=== PATIENT | female | born 1975 | race Caucasian/White ===

== ENCOUNTER 2020-01-27 12:39 | Inpatient (IN) ==
[2020-01-27] MEDS ORDERED: ONDANSETRON 4 MG/2 ML VIAL IV STA ×2 (13:09→14:45)
[2020-01-27 13:28] LABS: Basophils # 0.1 10*3/uL (0.0-0.2); Eosinophils # 0.1 10*3/uL (0.0-0.87); Eosinophils % 0.9 % (0.00-10.9); Hematocrit 23.7 VOL% (35.7-47.0); Hemoglobin 7.6 GM/DL (12.0-16.0); Immature Granulocytes % 0.8 %; Immature Granulocytes Absolute 0.06 #; Lymphocytes # 1.7 10*3/uL (1.4-4.0); Lymphocytes % 20.6 % (21.3-54.2); Mean Corpuscular HGB Conc 32.1 GM/DL (32-36); Mean Corpuscular Volume 119.7 FL (87-102); Mean Platelet Volume 12.2 FL (9.6-12.0); Monocytes % 12.8 % (1.7-12.7); Neutrophils % 63.9 % (38.7-73.9); Platelet Count 46 T/CUMM (130-400); Red Blood Count 1.98 MC/CUMM (3.8-5.5); Red Cell Distribution Width 22.5 % (9.3-17.3)
[2020-01-27 13:40] LABS: INR 2.3; PT Patient Result 23.3 SECS (9.8-11.9); Partial Thromboplastin Time 39.3 SECS (23.9-33.8)
[2020-01-27 13:50] LABS: Eosinophils 1 % (0-10); Lymphocytes 14 % (20-55); Segmented Neutrophils 74 % (50-85); Total Cells Counted 100
[2020-01-27 13:51] LABS: Platelet Estimate Decreased
[2020-01-27 13:52] LABS: Albumin 2.2 G/DL (3.4-5.0); Bilirubin,Total 3.1 MG/DL (0.2-1.0); Calcium 6.4 MG/DL (8.5-10.1); Hypochromasia Slight; Macrocytosis 1+; Osmolality,Calculated 266.2 MOS/KG (273-304); Polychromasia Few; Target Cells Few; Total Protein 6.3 G/DL (6.4-8.3)
[2020-01-27] MEDS ORDERED: POTASSIUM CHLORIDE 20 MEQ TABLET PO STA (14:02)
[2020-01-27] MEDS ORDERED: DEXTROSE 50% 25 GM/50 ML VIAL IV PRN (15:23)
[2020-01-27] MEDS ORDERED: GLUCAGON 1 MG VIAL IM PRN (15:23)
[2020-01-27] MEDS: SODIUM CHLOR 0.45% KCL 20 MEQ 20 MEQ/1,000 ML BAG IV SCH (15:28)
[2020-01-27] MEDS: NICOTINE 14 MG/24 HR PATCH TRANSDERM SCH (18:39)
[2020-01-28 06:18] LABS: Basophils # 0.1 10*3/uL (0.0-0.2); Basophils % 1.6 % (0.0-0.8); Eosinophils # 0.1 10*3/uL (0.0-0.87); Eosinophils % 1.3 % (0.00-10.9); Hematocrit 23.6 VOL% (35.7-47.0); Hemoglobin 7.6 GM/DL (12.0-16.0); Immature Granulocytes % 0.5 %; Immature Granulocytes Absolute 0.04 #; Lymphocytes % 13.6 % (21.3-54.2); Mean Corpuscular HGB Conc 32.2 GM/DL (32-36); Mean Corpuscular Volume 118.6 FL (87-102); Mean Platelet Volume 11.8 FL (9.6-12.0); Monocytes % 15.6 % (1.7-12.7); Neutrophils % 67.4 % (38.7-73.9); Platelet Count 49 T/CUMM (130-400); Red Blood Count 1.99 MC/CUMM (3.8-5.5); White Blood Count 7.5 T/CUMM (4-12)
[2020-01-28 06:33] LABS: INR 2.3; PT Patient Result 23.5 SECS (9.8-11.9); Partial Thromboplastin Time 37.9 SECS (23.9-33.8)
[2020-01-28 06:41] LABS: Band Neutrophils 1 % (0-10); Eosinophils 2 % (0-10); Hypochromasia 1+; Lymphocytes 7 % (20-55); Platelet Estimate Decreased; Segmented Neutrophils 80 % (50-85); Total Cells Counted 100
[2020-01-28 06:44] LABS: Calcium 6.6 MG/DL (8.5-10.1); Osmolality,Calculated 271.8 MOS/KG (273-304)
[2020-01-28] MEDS: ONDANSETRON 4 MG/2 ML VIAL IV PRN (06:52)
[2020-01-28] MEDS: SODIUM CHLOR 0.45% KCL 20 MEQ 20 MEQ/1,000 ML BAG IV SCH ×2 (07:58→17:35)
[2020-01-28] MEDS ORDERED: POTASSIUM CHLORIDE 20 MEQ TABLET PO ONE (08:29)
[2020-01-28] MEDS: MULTIVITAMIN (BEROCCA) TABLET PO SCH (09:40)
[2020-01-28] MEDS: THIAMINE 100 MG TABLET PO SCH (09:40)
[2020-01-28] MEDS: traMADol 50 MG TABLET PO PRN ×2 (11:20→17:34)
[2020-01-28] MEDS: PHYTONADIONE 5 MG/5 ML ORAL.SYR PO SCH (11:39)
[2020-01-28] MEDS ORDERED: TUBERCULIN SKIN TEST 0.1 ML SYRINGE INTRADERM ONE (13:18)
[2020-01-28] MEDS: NICOTINE 14 MG/24 HR PATCH TRANSDERM SCH (18:29)
[2020-01-29] MEDS: traMADol 50 MG TABLET PO PRN ×3 (00:41→17:21)
[2020-01-29] MEDS: SODIUM CHLOR 0.45% KCL 20 MEQ 20 MEQ/1,000 ML BAG IV SCH ×2 (04:24→16:25)
[2020-01-29 05:47] LABS: Basophils # 0.1 10*3/uL (0.0-0.2); Eosinophils # 0.1 10*3/uL (0.0-0.87); Eosinophils % 1.6 % (0.00-10.9); Hematocrit 21.9 VOL% (35.7-47.0); Hemoglobin 7.2 GM/DL (12.0-16.0); Immature Granulocytes % 0.4 %; Immature Granulocytes Absolute 0.03 #; Lymphocytes # 2.5 10*3/uL (1.4-4.0); Lymphocytes % 36.9 % (21.3-54.2); Mean Corpuscular HGB Conc 32.9 GM/DL (32-36); Mean Corpuscular Volume 117.7 FL (87-102); Mean Platelet Volume 11.2 FL (9.6-12.0); Monocytes % 12.9 % (1.7-12.7); Neutrophils % 47.2 % (38.7-73.9); Platelet Count 55 T/CUMM (130-400); Red Blood Count 1.86 MC/CUMM (3.8-5.5); Red Cell Distribution Width 22.7 % (9.3-17.3); White Blood Count 6.8 T/CUMM (4-12)
[2020-01-29 05:53] LABS: PT Patient Result 20.5 SECS (9.8-11.9)
[2020-01-29 06:10] LABS: Calcium 6.6 MG/DL (8.5-10.1)
[2020-01-29 06:16] LABS: Eosinophils 1 % (0-10); Lymphocytes 20 % (20-55); Platelet Estimate Decreased; Segmented Neutrophils 68 % (50-85); Total Cells Counted 100
[2020-01-29 06:17] LABS: Hypochromasia 1+
[2020-01-29] MEDS: THIAMINE 100 MG TABLET PO SCH (09:06)
[2020-01-29] MEDS: MULTIVITAMIN (BEROCCA) TABLET PO SCH (09:06)
[2020-01-29] MEDS: PHYTONADIONE 5 MG/5 ML ORAL.SYR PO SCH (09:55)
[2020-01-29] MEDS: NICOTINE 14 MG/24 HR PATCH TRANSDERM SCH (18:39)
[2020-01-30] MEDS: traMADol 50 MG TABLET PO PRN ×4 (00:03→23:20)
[2020-01-30 05:58] LABS: Basophils # 0.1 10*3/uL (0.0-0.2); Basophils % 1.2 % (0.0-0.8); Eosinophils # 0.2 10*3/uL (0.0-0.87); Eosinophils % 2.2 % (0.00-10.9); Hematocrit 22.5 VOL% (35.7-47.0); Hemoglobin 7.1 GM/DL (12.0-16.0); Immature Granulocytes % 0.4 %; Immature Granulocytes Absolute 0.03 #; Lymphocytes # 2.9 10*3/uL (1.4-4.0); Lymphocytes % 39.8 % (21.3-54.2); Mean Corpuscular HGB Conc 31.6 GM/DL (32-36); Mean Corpuscular Volume 121.6 FL (87-102); Mean Platelet Volume 11.2 FL (9.6-12.0); Monocytes % 12.1 % (1.7-12.7); Neutrophils % 44.3 % (38.7-73.9); Red Blood Count 1.85 MC/CUMM (3.8-5.5); Red Cell Distribution Width 22.5 % (9.3-17.3); White Blood Count 7.2 T/CUMM (4-12)
[2020-01-30 06:00] LABS: Platelet Count 58 T/CUMM (130-400)
[2020-01-30 06:04] LABS: INR 1.7; PT Patient Result 17.8 SECS (9.8-11.9)
[2020-01-30 06:40] LABS: Hypochromasia 1+; Lymphocytes 31 % (20-55); Macrocytosis Slight; Platelet Estimate Decreased; Segmented Neutrophils 59 % (50-85); Target Cells Few; Total Cells Counted 100
[2020-01-30] MEDS: NICOTINE 14 MG/24 HR PATCH TRANSDERM SCH (11:00)
[2020-01-30] MEDS: PHYTONADIONE 5 MG/5 ML ORAL.SYR PO SCH (11:00)
[2020-01-30] MEDS: MULTIVITAMIN (BEROCCA) TABLET PO SCH (11:00)
[2020-01-30] MEDS: THIAMINE 100 MG TABLET PO SCH (11:00)
[2020-01-30] MEDS ORDERED: TISSUE ADHESIVE 1 EACH APPLICATOR TOP ONE (13:06)
[2020-01-30 14:07] LABS: Neutrophils,Peritoneal Fluid 33 %
[2020-01-30 14:08] LABS: RBC,Peritoneal Fluid 10 T/CUMM
[2020-01-30] MEDS: SODIUM CHLOR 0.45% KCL 20 MEQ 20 MEQ/1,000 ML BAG IV SCH (17:41)
[2020-01-31 06:31] LABS: INR 1.6; PT Patient Result 16.6 SECS (9.8-11.9)
[2020-01-31] MEDS: traMADol 50 MG TABLET PO PRN ×3 (07:45→20:59)
[2020-01-31] MEDS: THIAMINE 100 MG TABLET PO SCH (09:24)
[2020-01-31] MEDS: NICOTINE 14 MG/24 HR PATCH TRANSDERM SCH (09:24)
[2020-01-31] MEDS: MULTIVITAMIN (BEROCCA) TABLET PO SCH (09:24)
[2020-01-31] MEDS ORDERED: FUROSEMIDE 20 MG/2 ML VIAL IV ONE (16:49)
[2020-01-31] MEDS: ACETAMINOPHEN 325 MG TABLET PO PRN (17:24)
[2020-01-31] MEDS: SPIRONOLACTONE 25 MG TABLET PO SCH (17:24)
[2020-02-01] MEDS: ACETAMINOPHEN 325 MG TABLET PO PRN ×3 (03:56→18:35)
[2020-02-01] MEDS: NICOTINE 14 MG/24 HR PATCH TRANSDERM SCH (09:16)
[2020-02-01] MEDS: THIAMINE 100 MG TABLET PO SCH (09:16)
[2020-02-01] MEDS: SPIRONOLACTONE 25 MG TABLET PO SCH (09:16)
[2020-02-01] MEDS: MULTIVITAMIN (BEROCCA) TABLET PO SCH (09:17)
[2020-02-01] MEDS: traMADol 50 MG TABLET PO PRN ×3 (09:21→15:21)
[2020-02-01] MEDS: ONDANSETRON 4 MG/2 ML VIAL IV PRN (11:02)
[2020-02-02] MEDS: MULTIVITAMIN (BEROCCA) TABLET PO SCH (08:22)
[2020-02-02] MEDS: THIAMINE 100 MG TABLET PO SCH (08:23)
[2020-02-02] MEDS: NICOTINE 14 MG/24 HR PATCH TRANSDERM SCH (08:23)
[2020-02-02] MEDS: SPIRONOLACTONE 25 MG TABLET PO SCH (09:05)
[2020-02-02] MEDS: traMADol 50 MG TABLET PO PRN ×3 (12:05→22:27)
[2020-02-02] MEDS: ACETAMINOPHEN 325 MG TABLET PO PRN (14:40)
[2020-02-03] MEDS: traMADol 50 MG TABLET PO PRN ×3 (05:58→16:50)
[2020-02-03 06:22] LABS: Basophils # 0.1 10*3/uL (0.0-0.2); Eosinophils # 0.2 10*3/uL (0.0-0.87); Hematocrit 20.4 VOL% (35.7-47.0); Hemoglobin 6.8 GM/DL (12.0-16.0); Immature Granulocytes % 1.1 %; Immature Granulocytes Absolute 0.11 #; Lymphocytes # 2.5 10*3/uL (1.4-4.0); Lymphocytes % 24.3 % (21.3-54.2); Mean Corpuscular HGB Conc 33.3 GM/DL (32-36); Mean Corpuscular Volume 119.3 FL (87-102); Mean Platelet Volume 11.6 FL (9.6-12.0); Monocytes % 11.5 % (1.7-12.7); Neutrophils % 60.1 % (38.7-73.9); Platelet Count 133 T/CUMM (130-400); Red Blood Count 1.71 MC/CUMM (3.8-5.5); Red Cell Distribution Width 20.8 % (9.3-17.3); White Blood Count 10.2 T/CUMM (4-12)
[2020-02-03 06:42] LABS: Albumin 1.9 G/DL (3.4-5.0); Bilirubin,Total 7.3 MG/DL (0.2-1.0); Calcium 7.7 MG/DL (8.5-10.1); Osmolality,Calculated 252.2 MOS/KG (273-304); Total Protein 5.7 G/DL (6.4-8.3)
[2020-02-03 07:20] LABS: Band Neutrophils 1 % (0-10); Lymphocytes 20 % (20-55); Total Cells Counted 100
[2020-02-03 07:21] LABS: Anisocytosis 2+; Eosinophils 2 % (0-10); Hypochromasia 2+; Macrocytosis 2+; Metamyelocytes 3 %; Myelocytes 1 %; Ovalocytes 1+; Platelet Estimate Decreased; Segmented Neutrophils 62 % (50-85); Target Cells 2+
[2020-02-03] MEDS ORDERED: SODIUM CHLORIDE 0.9% 1,000 ML IV PRN (07:49)
[2020-02-03 08:27] LABS: Ferritin 427.1 ng/ml (8-252)
[2020-02-03 08:54] LABS: Folate 20.1 NG/ML (5.4-24.0); Vitamin B12 > 2000 PG/ML (211-911)
[2020-02-03] MEDS: SPIRONOLACTONE 25 MG TABLET PO SCH (08:55)
[2020-02-03] MEDS: THIAMINE 100 MG TABLET PO SCH (08:55)
[2020-02-03] MEDS: MULTIVITAMIN (BEROCCA) TABLET PO SCH (08:55)
[2020-02-03] MEDS: NICOTINE 14 MG/24 HR PATCH TRANSDERM SCH (08:57)
[2020-02-03] MEDS ORDERED: FUROSEMIDE 40 MG/4 ML VIAL IV ONE (13:28)
[2020-02-03 19:13] LABS: Hematocrit 30.9 VOL% (35.7-47.0); Hemoglobin 10.3 GM/DL (12.0-16.0)
[2020-02-03] MEDS: LACTULOSE 20 GM/30 ML UDCUP PO SCH (21:06)
[2020-02-03] MEDS: ACETAMINOPHEN 325 MG TABLET PO PRN (21:06)
[2020-02-04 06:02] LABS: Basophils # 0.1 10*3/uL (0.0-0.2); Basophils % 1.1 % (0.0-0.8); Eosinophils # 0.1 10*3/uL (0.0-0.87); Eosinophils % 1.2 % (0.00-10.9); Hemoglobin 10.2 GM/DL (12.0-16.0); Immature Granulocytes % 0.8 %; Immature Granulocytes Absolute 0.07 #; Lymphocytes # 2.4 10*3/uL (1.4-4.0); Mean Corpuscular Volume 105.3 FL (87-102); Monocytes % 13.6 % (1.7-12.7); Neutrophils % 57.3 % (38.7-73.9); Platelet Count 103 T/CUMM (130-400); Red Blood Count 2.85 MC/CUMM (3.8-5.5); Red Cell Distribution Width 27.1 % (9.3-17.3); White Blood Count 9.3 T/CUMM (4-12)
[2020-02-04 06:21] LABS: Hypochromasia 1+; Macrocytosis Slight; Platelet Estimate Decreased
[2020-02-04 06:29] LABS: Albumin 1.9 G/DL (3.4-5.0); Bilirubin,Total 7.1 MG/DL (0.2-1.0); Calcium 7.8 MG/DL (8.5-10.1); Osmolality,Calculated 264.2 MOS/KG (273-304); Total Protein 5.8 G/DL (6.4-8.3)
[2020-02-04] MEDS: SPIRONOLACTONE 25 MG TABLET PO SCH (09:58)
[2020-02-04] MEDS: LACTULOSE 20 GM/30 ML UDCUP PO SCH ×2 (09:59→20:01)
[2020-02-04] MEDS: MULTIVITAMIN (BEROCCA) TABLET PO SCH (09:59)
[2020-02-04] MEDS: THIAMINE 100 MG TABLET PO SCH (09:59)
[2020-02-04] MEDS: traMADol 50 MG TABLET PO PRN ×2 (09:59→16:25)
[2020-02-04] MEDS: NICOTINE 14 MG/24 HR PATCH TRANSDERM SCH (10:00)
[2020-02-04] MEDS: FUROSEMIDE 40 MG/4 ML VIAL IV SCH (12:16)
[2020-02-05 05:56] LABS: Basophils # 0.1 10*3/uL (0.0-0.2); Basophils % 1.2 % (0.0-0.8); Eosinophils # 0.1 10*3/uL (0.0-0.87); Eosinophils % 1.4 % (0.00-10.9); Hematocrit 30.1 VOL% (35.7-47.0); Hemoglobin 10.3 GM/DL (12.0-16.0); Immature Granulocytes % 0.6 %; Immature Granulocytes Absolute 0.05 #; Lymphocytes # 2.2 10*3/uL (1.4-4.0); Lymphocytes % 25.8 % (21.3-54.2); Mean Corpuscular HGB Conc 34.2 GM/DL (32-36); Mean Corpuscular Volume 106.4 FL (87-102); Mean Platelet Volume 10.8 FL (9.6-12.0); Monocytes % 12.4 % (1.7-12.7); Neutrophils % 58.6 % (38.7-73.9); Platelet Count 84 T/CUMM (130-400); Red Blood Count 2.83 MC/CUMM (3.8-5.5); Red Cell Distribution Width 26.9 % (9.3-17.3); White Blood Count 8.3 T/CUMM (4-12)
[2020-02-05 06:20] LABS: Hypochromasia 1+; Lymphocytes 29 % (20-55); Platelet Estimate Decreased; Segmented Neutrophils 67 % (50-85); Total Cells Counted 100
[2020-02-05 06:21] LABS: Macrocytosis Slight
[2020-02-05] MEDS: LACTULOSE 20 GM/30 ML UDCUP PO SCH ×2 (08:04→21:11)
[2020-02-05] MEDS: MULTIVITAMIN (BEROCCA) TABLET PO SCH (08:04)
[2020-02-05] MEDS: SPIRONOLACTONE 25 MG TABLET PO SCH (08:04)
[2020-02-05] MEDS: NICOTINE 14 MG/24 HR PATCH TRANSDERM SCH (08:05)
[2020-02-05] MEDS ORDERED: MAGNESIUM SULF RIDER 2 GM in PREMIX 1 EACH IV PRN (08:05)
[2020-02-05] MEDS ORDERED: MAGNESIUM SULF RIDER 4 GM in PREMIX 1 EACH IV PRN (08:05)
[2020-02-05] MEDS: FUROSEMIDE 40 MG/4 ML VIAL IV SCH (08:05)
[2020-02-05] MEDS: THIAMINE 100 MG TABLET PO SCH (08:05)
[2020-02-05] MEDS: traMADol 50 MG TABLET PO PRN ×2 (11:11→17:16)
[2020-02-06] MEDS: traMADol 50 MG TABLET PO PRN ×3 (01:00→19:23)
[2020-02-06 05:57] LABS: Basophils # 0.1 10*3/uL (0.0-0.2); Basophils % 1.1 % (0.0-0.8); Eosinophils # 0.2 10*3/uL (0.0-0.87); Eosinophils % 1.8 % (0.00-10.9); Hematocrit 29.3 VOL% (35.7-47.0); Hemoglobin 9.8 GM/DL (12.0-16.0); Immature Granulocytes % 0.4 %; Immature Granulocytes Absolute 0.04 #; Lymphocytes # 2.3 10*3/uL (1.4-4.0); Lymphocytes % 25.1 % (21.3-54.2); Mean Corpuscular HGB Conc 33.4 GM/DL (32-36); Mean Corpuscular Volume 106.5 FL (87-102); Mean Platelet Volume 10.7 FL (9.6-12.0); Monocytes % 11.7 % (1.7-12.7); Neutrophils % 59.9 % (38.7-73.9); Red Blood Count 2.75 MC/CUMM (3.8-5.5); Red Cell Distribution Width 25.8 % (9.3-17.3); White Blood Count 9.1 T/CUMM (4-12)
[2020-02-06 05:58] LABS: Platelet Count 72 T/CUMM (130-400)
[2020-02-06 06:18] LABS: Calcium 7.8 MG/DL (8.5-10.1); Osmolality,Calculated 263.2 MOS/KG (273-304)
[2020-02-06 06:22] LABS: Eosinophils 3 % (0-10); Lymphocytes 23 % (20-55); Segmented Neutrophils 66 % (50-85); Total Cells Counted 100
[2020-02-06 06:23] LABS: Hypochromasia 1+; Platelet Estimate Decreased
[2020-02-06 06:24] LABS: Macrocytosis Slight
[2020-02-06] MEDS: MULTIVITAMIN (BEROCCA) TABLET PO SCH (09:07)
[2020-02-06] MEDS: FUROSEMIDE 40 MG/4 ML VIAL IV SCH (09:07)
[2020-02-06] MEDS: NICOTINE 14 MG/24 HR PATCH TRANSDERM SCH (09:07)
[2020-02-06] MEDS: SPIRONOLACTONE 25 MG TABLET PO SCH (09:07)
[2020-02-06] MEDS: LACTULOSE 20 GM/30 ML UDCUP PO SCH (09:07)
[2020-02-06] MEDS: THIAMINE 100 MG TABLET PO SCH (09:08)
[2020-02-06] MEDS ORDERED: MAGNESIUM OXIDE 400 MG TABLET PO ONE (09:28)
[2020-02-06 16:04] VITALS: BP 128/73
== END 2020-02-06 19:45 | DRG 433 ==
LOC: EDBD → EDUNIT# → N.ED 12:39 → N.EDINP 12:39 → N.3E 17:15 → SUATTDRO 01-30 14:42
PROVIDERS: ADMIT Internal Medicine Geriatric Medicine; ATTEND Internal Medicine